=== PATIENT | female | born 1985 ===

== ENCOUNTER 2022-02-26 11:27 | Outpatient (CLI) | payer OTHER | END 2022-02-26 13:14 | disposition home or self-care (01) | LOC: PRENATAL 11:27 | PROVIDERS: ATTEND Obstetrics & Gynecology Maternal & Fetal Medicine | DX: Z76.1 Encounter for health supervision and care of foundling (principal) ==

== ENCOUNTER 2022-03-04 09:17 | Outpatient (CLI) | payer OTHER | END 2022-03-04 10:45 | disposition home or self-care (01) | LOC: PRENATAL 09:17 | PROVIDERS: ATTEND Obstetrics & Gynecology Maternal & Fetal Medicine | DX: O35.9XX0 Maternal care for (suspected) fetal abnormality and damage, unspecified, not applicable or unspecified (principal); O35.3XX0 Maternal care for (suspected) damage to fetus from viral disease in mother, not applicable or unspecified; O09.529 Supervision of elderly multigravida, unspecified trimester; O40.1XX0 Polyhydramnios, first trimester, not applicable or unspecified; Z3A.26 26 weeks gestation of pregnancy ==

== ENCOUNTER 2022-04-14 09:20 | Outpatient (CLI) | payer OTHER | END 2022-04-14 10:27 | disposition home or self-care (01) | LOC: PRENATAL 09:20 | PROVIDERS: ATTEND Obstetrics & Gynecology Maternal & Fetal Medicine | DX: O26.849 Uterine size-date discrepancy, unspecified trimester (principal); O36.8199 Decreased fetal movements, unspecified trimester, other fetus; O09.529 Supervision of elderly multigravida, unspecified trimester; O40.1XX0 Polyhydramnios, first trimester, not applicable or unspecified; Z3A.32 32 weeks gestation of pregnancy ==

== ENCOUNTER 2022-05-13 13:52 | Outpatient (CLI) | payer OTHER | END 2022-05-13 15:10 | disposition home or self-care (01) | LOC: PRENATAL 13:52 | PROVIDERS: ATTEND Obstetrics & Gynecology Maternal & Fetal Medicine | DX: O26.849 Uterine size-date discrepancy, unspecified trimester (principal); O36.8199 Decreased fetal movements, unspecified trimester, other fetus; O40.1XX0 Polyhydramnios, first trimester, not applicable or unspecified; O09.529 Supervision of elderly multigravida, unspecified trimester ==